=== PATIENT | male | born 2000 | race African-American/Black ===

== ENCOUNTER 2023-06-03 00:04 | Emergency (ER) | payer SELFPAY ==
[2023-06-03] MEDS ORDERED: Ibuprofen 200 MG TAB ONE (01:18)
[2023-06-03] MEDS ORDERED: HYDROcodone/Acetaminophen 5/325 mg Tablet ONE (01:18)
[2023-06-03] MEDS ORDERED: Penicillin V Potassium 250 MG TAB PO SCH (01:30)
== END 2023-06-03 01:28 | disposition home or self-care (01) ==
LOC: CSHERS 00:04
DX: K08.89 Other specified disorders of teeth and supporting structures (principal); F17.210 Nicotine dependence, cigarettes, uncomplicated
CPT/HCPCS: 99282